=== PATIENT | male | born 1980 | race Caucasian/White ===

== ENCOUNTER 2020-01-26 08:17 | Outpatient (CLI) | payer OTHER, SELFPAY ==
--- NOTE | 2020-02-07 16:30 | SLEEP_ITS ---
Home Sleep Test. DATE OF STUDY: 01/26/2020 REASON FOR THE STUDY: Waking feeling unrefreshed, tired all day. HISTORY: This patient is a 39-year-old male, 5 feet 8 inches tall, weighing 167 pounds with a body mass index of 25.4. He has a history of waking up feeling unrefreshed and tired throughout the day. He experiences panic attacks in his sleep. He wakes up feeling disoriented with a rapid heart rate. He is unable to catch his breath. He feels faint during these episodes and has extreme exhaustion. He has had more than one at night and on one occasion lost consciousness. It does not happen often, but it is traumatic when it does happen. This has been going on irregularly for over 2 years. It is moderately severe. He wakes up during sleep, has excessive daytime sleepiness and difficulty waking. He rarely snores and it is never loud enough that others complain about it. He occasionally has trouble sleeping with a cold. He occasionally wakes up gasping for breath at night. He does not have breathing problems at night witnessed by others. He occasionally sweats excessively at night and notices his heart pounding or beating irregularly at night. He rarely falls asleep during the day. He does not fall asleep involuntarily or while driving. He does not have loss of muscle tone with strong emotion. He occasionally has daytime difficulties due to excessive sleepiness. He rarely feels paralyzed on waking or falling asleep. He does not have vivid dreamlike scenes upon awakening or falling asleep. He is frequently afraid to go to sleep. He constantly has nightmares. He frequently remembers his dreams and frequently has racing thoughts. He frequently feels sad or depressed. He constantly has anxiety. He frequently has muscular tension, occasionally notices parts of his body jerking and occasionally kicks at night. He rarely has crawling and aching feelings in his legs. He rarely has leg pain at night. He does not have morning jaw pain and rarely grinds his teeth at night. He occasionally is bothered by pain during the day. He has never awakened by pain at night. He frequently wakes up feeling stiff in the morning with sore achy muscles and pain in the spine and neck. He has dizziness, stomach problems, fatigue, panic, suicidal ideas, sexual problems, memory problems, insomnia and concentration difficulties. In addition, he takes antacids regularly, feels depressed, tensed, has nightmares, bowel disturbances, and palpitations. Normal bedtime is 12 midnight to 3 a.m., taking 15-20 minutes to fall asleep, typically waking 1 to 2 times at night for 5 minutes during which time he will go and urinate. He wakes up in the morning at 11 a.m. He has disturbance with his libido and is not sure if it is due to sexual problems or sleep problems. Weekend schedule is different, going to bed between 1 and 5 a.m. and waking by 12 noon. He does not take naps in the early evening or afternoon. A short nap is not refreshing. He is usually drowsy after waking for 3 hours or longer. He feels better in the evening than other times of day. MEDICAL COMORBIDITIES: Hyperlipidemia, hypertension, depression, and gastroesophageal reflux disease. MEDICATIONS: 1. Atorvastatin 80 mg a day. 2. Fenofibrate 145 mg daily. 3. Metoprolol 25 mg daily. 4. Sertraline 100 mg daily for depression and anxiety. HABITS: Tobacco, quit 14 months ago. Caffeine, 1 beverage a day. No alcohol or recreational drugs. DESCRIPTION OF THE STUDY: On the [place] Sleepiness Scale, his score is 3. This was conducted as an unattended type 3 portable home sleep test using 4-channel monitoring including respiratory effort channel, snoring channel, oxygen saturation channel, and heart rate channel. This study was score
== END 2020-01-26 08:18 | disposition home or self-care (01) ==
LOC: ANHCSM 08:21
PROVIDERS: PCP Emergency Medicine; Visit Provider Family Medicine
DX: G47.30 Sleep apnea, unspecified (principal)
CPT/HCPCS: 95806

== ENCOUNTER 2022-01-04 16:45 | Emergency (ER) | payer OTHER, SELFPAY ==
[2022-01-04] VITALS (9 sets, daily range): BP systolic 140–192; BP diastolic 99–106; PULSE 56–66; RESP 14–20; TEMP 36.4; O2SAT 99–100
--- NOTE | ~2022-01-04 | XR_ITS ---
EXAMINATION: XR chest 2V DATE: 01/04/2022 17:13 INDICATION: Shortness of breath. Chest tightness. TECHNIQUE: Frontal and lateral views of the chest were obtained. COMPARISON: Chest 2 views 03/18/2018 FINDINGS: There is mild scarring in right midlung zone. No pleural effusion or pneumothorax. The hear t size is normal. IMPRESSION: 1. Stable mild scarring in right midlung zone. Reviewed, dictated and finalized at location E. IC INSPECTOR
--- NOTE | 2022-01-04 16:53 | ECG_ITS ---
Measurements Intervals [place] Rate: 64 P: 47 [place]: 162 QRS: 10 QRSD: 101 T: 35 QT: 405 QTc: 420 Interpretive Statements SINUS RHYTHM DELAYED PRECORDIAL R/S TRANSITION CONSIDER INFERIOR INFARCT, AGE INDETERMINATE ABNORMAL ECG Electronically Signed On 01-04-2022 20:09:11 ENROLLMENT COORDINATOR by Mason Venegas D.O.
--- NOTE | 2022-01-04 17:12 | ED.GENADULT ---
HPI - General Adult General Chief complaint: Arrhythmia/Palpitations Stated complaint: irregular heart beat Time Seen by Provider: 01/04/22 16:57 Source: RN notes reviewed History of Present Illness HPI narrative: Patient presents emergency department from home for heart palpitations. Patient states that over the past 1 month he has been having feelings like his heart is skipping or jumping states that these are happening approximately 40 to of 100 times a day states that these episodes are brief and resolve on their own. States they last for approximately 1 to 2 seconds. He states a feeling of mild shortness of breath at times when they occur he denies any fevers or chills he denies any chest pain denies any previous cardiac history Related Data Home Medications Medication Instructions Recorded Confirmed metoprolol tartrate 01/04/22 01/04/22 Allergies Allergy/AdvReac Type Severity Reaction Status Date / Time No Known Allergies Allergy Unknown Other Verified 01/04/22 16:53 Review of Systems Review of Systems: Gen.: Denies fevers or chills ENT: Denies congestion Respiratory: Denies shortness of breath or cough CV: See HPI GI: Denies abdominal pain nausea, emesis or diarrhea Musculoskeletal: Denies back pain or muscle pain Neuro: Denies numbness, tingling, weakness or focal weakness Skin: Denies rash Except as documented, all other systems reviewed and negative PMFSH Past Medical History Medical History (Updated 01/04/22 @ 19:00 by Bob Mishra DO) Patient denies significant medical history Social History Social History (Updated 01/04/22 @ 17:43 by Bob Mishra DO) Smoking status: Never smoker Exam Narrative: APPEARANCE: No acute distress, nontoxic, resting in bed EYES: EOMI HEENT: Normocephalic, atraumatic, OMM RESPIRATORY: No respiratory distress Clear to auscultation bilaterally with no rhonchi wheezing or rales. CARDIOVASCULAR: Regular rate and rhythm without murmurs rubs or gallops. ABDOMINAL: Soft, nontender, nondistended, no rebound or guarding MUSCULOSKELETAl: Moves all extremities. No clubbing, cyanosis or edema. NEURO: Awake and alert. Following commands, speech normal, no focal deficits SKIN:: Warm, dry. No rashes lesions or abrasions PSYCHIATRIC: Normal affect/mood, Course Course Emergency Course: Patient remained on monitoring and evaluation advisor throughout stay in ED with no arrhythmias noted Discussed with patient results of workup and diagnosis. Discussed need for follow-up with primary care, proper use of medication, and reasons to return to the emergency department. Patient understands and agrees to current treatment plan discussed with patient mildly elevated TSH and for follow-up with PCP Vital Signs Vital signs: Vital Signs Temperature 97.6 F 01/04/22 16:49 Pulse Rate 65 01/04/22 16:49 Respiratory Rate 16 01/04/22 16:49 Blood Pressure 192/106 H 01/04/22 16:49 Pulse Oximetry 100 01/04/22 16:49 Temperature 97.6 F 01/04/22 16:49 Pulse Rate 64 01/04/22 17:00 Respiratory Rate 14 01/04/22 17:00 Blood Pressure 192/106 H 01/04/22 16:52 Pulse Oximetry 100 01/04/22 17:00 Medical Decision Making Vital Signs Vital Signs: Vital Signs Temperature 97.6 F 01/04/22 16:49 Pulse Rate 65 01/04/22 16:49 Respiratory Rate 16 01/04/22 16:49 Blood Pressure 192/106 H 01/04/22 16:49 Pulse Oximetry 100 01/04/22 16:49 Temperature 97.6 F 01/04/22 16:49 Pulse Rate 64 01/04/22 17:00 Respiratory Rate 14 01/04/22 17:00 Blood Pressure 192/106 H 01/04/22 16:52 Pulse Oximetry 100 01/04/22 17:00 Lab Data Result diagrams: 01/04/22 17:08 01/04/22 17:08 Labs: Lab Results 01/04/22 01/04/22 01/04/22 Range/Units 17:08 17:08 17:08 WBC 7.4 (4.5-10.0) K/mm3 RBC 4.80 (4.6-6.20) M/mm3 Hgb 14.6 (14.0-18.0) g/dL Hct 41.5 L (42.0-52.0) % MCV 86.5 (80-100) fl MCH 30.4 (26-34) pg
[2022-01-04 17:15] LABS: Basophils Absolute Auto 0.1 K/mm3 (0.0-0.1); Basophils Percent Auto 0.7 % (0.2-1.2); Eosinophils Absolute Auto 0.2 K/mm3 (0-0.3); Eosinophils Percent Auto 3.1 % (0-4.4); Hematocrit 41.5 % (42.0-52.0); Hemoglobin 14.6 g/dL (14.0-18.0); Immature Granulocyte Absolute 0.03 K/mm3 (0.00-0.031); Immature Granulocyte Percent A 0.4 % (0-0.5); Lymphocytes Absolute Auto 2.65 K/mm3 (0.9-3.2); Lymphocytes Percent Auto 35.6 % (18.3-44.2); Mean Corpuscular HGB Conc 35.2 g/dl (32-36); Mean Corpuscular Hemoglobin 30.4 pg (26-34); Mean Corpuscular Volume 86.5 fl (80-100); Mean Platelet Volume 9.7 fl (7.4-10.4); Monocytes Absolute Auto 0.5 K/mm3 (0.1-0.6); Neutrophils Percent Auto 53.2 % (45.5-73.1); Platelet Count Result 227 k/mm3 (150-375); Red Cell Distribution Width 12.8 % (11.5-14.5); White Blood Count 7.4 K/mm3 (4.5-10.0)
[2022-01-04 17:24] LABS: INR 1.1; Prothrombin Time 13.3 Seconds (11.1-14.7)
[2022-01-04 17:25] LABS: Partial Thromboplastin Time 28.6 SECONDS (22.3-36.8)
[2022-01-04 17:35] LABS: Alanine Aminotransferase 89 U/L (4-50); Alkaline Phosphatase 96 U/L (38-126); Anion Gap 9 mmol/L (8-16); Aspartate Amino Transferase 44 U/L (17-59); Bilirubin,Total 0.5 mg/dL (0.2-1.3); Blood Urea Nitrogen 13 mg/dL (9-20); Calcium 9.8 mg/dL (8.4-10.2); Carbon Dioxide 25 mmol/L (22-30); Chloride 102 mmol/L (98-107); Estimated Glomerular Filt Rate > 60; Glucose 127 mg/dL (65-110); Lipase 342 U/L (23-300); Potassium 3.5 mmol/L (3.4-5.0); Sodium 136 mmol/L (137-145)
[2022-01-04 17:46] LABS: Troponin I < 0.012 ng/mL (0.000-0.034)
[2022-01-04 17:47] LABS: Magnesium 1.8 mg/dL (1.6-2.3)
== END 2022-01-04 19:00 | disposition home or self-care (01) ==
PROVIDERS: Emergency Provider Emergency Medicine
DX: R00.2 Palpitations (principal); R94.31 Abnormal electrocardiogram [ECG] [EKG]
CPT/HCPCS: 36415; 71046; 80053; 83690; 83735; 84443; 84484; 85025; 85610; 85730; 93005; 99284

== ENCOUNTER 2025-03-09 22:27 | Emergency (ER) | payer OTHER, SELFPAY ==
--- NOTE | ~2025-03-09 | XR_ITS ---
XR chest 2V Ordering provider: Pk Snyder MD History: 44 years Male with . dizzy, htn; hx of htn . Comparison: January 04, 2022 FINDINGS: MEDIASTINUM: The cardiac silhouette is not enlarged. LUNGS: No infiltrates, effusions or pneumothorax. OTHER: No free air under the diaphragm. IMPRESSION: No acute cardiopulmonary pathology. Reviewed, dictated and finalized at location A.
[2025-03-09 22:29] VITALS: BP 179/98; PULSE 61; RESP 17; TEMP 36.2; O2SAT 100
--- OUTSIDE RECORDS SUMMARY | 2025-03-09 22:29 | XMS_ITS | Continuity of Care Document ---
Author Organization [facility] Address [address] [place] [address] [place] [address] Phone Care Team Providers Care Food Broker Name Role Phone Jorge Akbar MD Unavailable Unavailable Allergies, Adverse Reactions, Alerts Substance Reaction Status Criticality No Known Allergies Active No Inform ation Medications Medication Instructions Dosage Effective Dates (start - stop) Status Comments lisinopril 10 mg tablet take 1 tablet by oral route every day 10 MG - Active metoprolol tartrate 25 mg tablet take 1 tablet by oral route 2 times every day 25 MG - Active Lipitor 80 mg tablet take 1 tablet by or al route every day 80 MG - Active omeprazole 20 mg capsule,delayed release take 1 capsule by oral route every day before a meal 20 MG - Active Procedures Procedure Date OFFICE/OUTPATIENT VISIT, EST OFFICE/OUTPATIENT VISIT, EST OFFICE/OUTPATIENT VISIT, EST OFFICE/OUTPATIENT VISIT, EST OFFICE/OUTPATIENT VISIT, EST OFFICE/OUTPATIENT VISIT, EST PREV VISIT, NEW, AGE 18-39 Advance Directives Directive Yes / No Effective Date File Name No Information Encounters Encounter Description Practice Location Reason(s) For Visit Diagnoses Date Provider Providers Copied on Encounter [facility], [address] [place], [id number], [place] tel:[phone] [facility] No Information 8 Raffy Patel. [address] [place], [address] , [place]. tel:[phone] Referring Provider: Ximena Shrestha [address], [place], [place], [id number]. tel:[phone] OFFICE/OUTPA TIENT VISIT, [facility], [place], [address], [place], [place], [id number], [place] tel:[phone] [facility] HLP (chief complaint) GERD1 (chief complaint) anxiety1 (chief complaint) chest pain1 (chief complaint) Chest painGERD w/o esophagitisGenerali zed Anxiety DisorderHyperlipide andra 8 Raffy Patel. [address], [place], [place], [address] , [place]. tel:[phone] Referring Provider: [address], [place], [place], [id number]. tel:[phone] OFFICE/OUTPA TIENT VISIT, [facility], [place], [address], [place], [place], [address], [place] tel:[phone] [facility] chest pain1 (chief complaint) HLP (chief complaint) GERD1 (chief complaint) anxiety1 (chief complaint) toothache1 (chief complaint) Chest painGERD w/o esophagitisGenerali zed Anxiety DisorderHypercalcem iaAtypical facial painHyperlipidemia 3 0 8 Raffy Hawley [address], [place], [place], [address] , [place]. tel:[phone] Referring Provider: Ximena Shrestha [address], [place], [place], [address]. tel:[phone] OFFICE/OUTPA TIENT VISIT, [facility], [place], [address] [place], [address], [place] tel:[phone] [facility] HLP (chief complaint) HTN (chief complaint) recal bleeding1 (chief complaint) PalpitationsHyperli pidemiaOccult blood in fecesGERD w/o esophagitis Jan-0 8 Raffy Patel. [address], [place], [place], [address] , [place]. [phone] Referring Provider: Ximena Shrestha [facility], [place], [place], [id number]. tel:[phone] OFFICE/OUTPA TIENT VISIT, [facility], [place], [address], [place], [place], [address], [place] [phone] [facility] anxiety` (chief complaint) HLP (chief complaint) calcium (chief complaint) palpitatio n1 (chief complaint) HyperlipidemiaGener alized Anxiety DisorderSleep apneaPalpitations 7 Raffy Hawley [address], [place], [place], [address] , [place]. tel:[phone] Referring Provider: Ximena Shrestha [facility], [place], [place], [address]. tel:[phone] OFFICE/OUTPA TIENT VISIT, [facility], [place], [address], [place], [place], [address], [place] tel:[phone] [facility] HLP (chief complaint) panic attack1 (chief complaint) calcium (chief complaint) HyperlipidemiaHyper calcemiaGeneralized Anxiety DisorderVitamin D deficiency, unspecified 7 Raffy Hawley [address], [place], [place], [address] , [place]. tel:[phone] Referring Provider: Ximena Shrestha [facility] [address], [place], [place], [address]. tel:[phone] OFFICE/OUTPA TIENT VISIT, [facility], [place], [address] [place], [address], [place] [phone] [facility] anxiety1 (chief complaint) palpitatio n1 (chief complaint) cold symptoms1 (chief complaint) Acute upper respiratory infection, unspecifiedPalpitat ionsGeneralized Anxiety DisorderEssential (primary) hypertension 7 Raffy Hawley [address], [place], [place], [address] , [place]. tel:[phone] Referring Provider: Jorge Akbar, [address], [place], [place], [address]. tel:[phone] PREV VISIT, NEW, AGE 18-39 [facility], [address], [place], [place], [address], tel:[phone] [facility] PHysical (chief complaint) Encntr for general adult medical exam w/o abnormal findings Raffy Patel. [address], [place], [place], [address] , [place]. tel:[phone] Referring Provider: Jorge Akbar, [address], [place], [place], [address]. tel:[phone] Family History Family Member Type Diagnosis Age At Onset Father Problem (finding) Unknown Mother Problem (finding) Hypertension Brother Problem (finding) Alive and well Payers Payer name Insurance type Covered alliance party ID Authoriza tion(s) No Information Social History Type Description Quantity Date Captured Comments Alcohol Use Details Unknown Caffeine Use Details Unknown Tobacco Use Status Smoking Status No Information Sex Male Chief Complaint And Reason For Visit No Information Plan Of Treatment Date Type Action Status Referral Ordered: PUJA BARFIELD -[facility]opathic [facility] Osteopathic Physicians : Internal Medicine (related to Chest pain) ordered Referral Referred To: PUJA BARFIELD [id number] [place], [place], [phone] Ordered: Referrals: Allopathic & Osteopathic Physicians : Internal Medicine. PUJA BARFIELD. Evaluate and treat ordered Referral Ordered: Mason Venegas (related to Palpitations) ordered Referral Referred To: Mason Venegas [address] [place], [place] [id number] Ordered: Referrals: Mason Venegas. Evaluate and treat ordered Referral Ordered: PUJA BARFIELD (related to Sleep apnea) ordered Referral Referred To: PUJA BARFIELD [id number] [place], [place], [phone] Ordered: Referrals: PUJA BARFIELD. Evaluate and treat ordered Referral Ordered: DOPPLER ECHO EXAM, HEART ordered History Of Present Illness Encounter Date Complaint History Of Prese nt Illness HLP Pt has HLP Pt ta kes lipitor 80 mg daily. Pt denies any myalgia GERD1 Pt has GERD. Pt takes omeprazole and is helping his GERd symptoms. Pt developed right upper quadrant pain for two days. Pt describes sharp pain anxiety1 Pt has chronic a nxiety and depression. Pt states that lexapro is causing too much side effect and he wants to go back to zoloft. Pt denies any suicidal or homicidal thought. Pt denies any crying spells chest pain1 Pt has atypical chest pain, nonexertional. Pt has appointment with cardiology in two weeks. pt denies any acute chest pain. pt has occasional palpitation. HLP P thas HLP Pt is on lipitor 40 mg daily. His lipid profile is still high toothache1 Pt has toothache . Pt has tooth decay. Pt has appointment with dentist soon. Pt denies any facial swelling anxiety1 Pt has chronic a nxiety and depression. Pt takes zoloft but still feels depressed. and anxious. Pt denies any suicidal or homicidal thought. Pt denies any crying spells GERD1 Pt has daily KERRIE D despite taking zantac.. Pt denies any acute abdomen pain or any nausea chest pain1 Pt went to ER re cently for chest pain. pt had negative troponin and ekg and was sent home. Pt c/o diffuse chest pain with some right arm numbness and tingling . Pt was told he has anxiety HLP Pt has HLP. Pt t akes lipitor. Pt denies any myalgia. pt has not done lab yet HTN Pt has hTN and h e takes metoprolol and lisinopirl. Pt still has occassioal palpitation. Pt still has not done the EKG and echo yet. Pt denie any chest pain recal bleeding1 Pt has bright re d blood per rectum for one week. Pt has chronic diarrhea since 6 months ago. Pt denies any abd pain, Pt has sever GERD symptoms for several months Pt has to have diarrhea right after food. Pt denies any fever, chill. Pt started amoxil 5 days ago due to tooth infection anxiety` Pt has chronic a nxiety and depression. Pt has panic attacks at night. Pt did not start seroquel due to scared of side effects. Pt states that sometimes he wakes up at night gasping for air. Pt is not sure whether he has anxiety vs other issue.s HLP Pt has HLP Pt [facility] lipitor. Pt denies any myalgia. Pt has been trying low fat and low carb diet calcium Pt has mild high calcium. palpitation1 Pt has intermitt ent palpitation. Pt still has not done echo and Ekg yet Pt denies any chest pain. Pt states that he sometimes wakes up unable to breath at night. Pt does feel morning fatigue. HLP Pt has rather se tyron HLP his TC and TG are high Pt has history of HLp Pt states that he has strong family history of HLP Pt eats 2-3 fast food per week and he also likes potato etc. calcium Pt has mildly prem rderline hypercalcemia. panic attack1 Pt has anxiety a nd depression with occassioal panic attacks. Pt states that all panic attacks occurs at night while he tries to fall asleep. He states that he wakes up from panic attacks multiple times. . pt also has insomnia. Pt feels zoloft does help but his anxiety and panic attacks are still not well controlled at night anxiety1 Pt has chronic a nxiety and depression. Pt has poor motivation and severe anxiety. Pt states that zoloft helped his depression and anxiety. Pt still has lack of motivation and also he still does not want to go out of the house all the time. Pt failed buspar in the past Pt overall feels that zoloft is helping. palpitation1 Pt has intermitt ent palpitation. Pt denies any chest pain .Pt supposest o see cardiology but his insurance refuses to provide medicar severice for him. He missed his appointment. He does not have drive licenese due to history of DUI and he canot get anything done. Pt feels sob intermittently when he feels anxious. Pt denies any acute sob cold symptoms1 Pt c/o sinus con gestion, chest congestion productive coughing with green phlegm, sore throat for one weeks. pt denies any ear pain. Pt denies any fever, chill. PHysical Pt needs annual physical. pt has chronic HTn. Pt takes metoprolol for long time but his physician recently started him on lisinopirl in addition to metoprolol. Pt states that his BP is still high. Pt denies any chest pain or sob. Pt also has HLP but he was not currenlty being treated. Pt denies any headache. Pt denies any other complaints. His bp is above 140 at home. Pt recently had some palpitation and sob during sleep and also during the day. Pt states that he has several episodes of palpitatoin with sob throughout the day also. Pt states that symptoms occur during last 2 months. Pt is under a lot of stress recently. Pt denies any acute symptoms. Pt denies any exertional symptoms. pt thinks that he is having a lot fo panic attacks recnelty. Pt also feels depressed. Pt denies any cyring spells Instructions Date Instruction Additional Infor mation Increase activity. Related to Hy perlipidemia Follow a low sodium diet. Relate d to Hyperlipidemia Elevate head of bed prior to sle ep. Related to GERD w/o esophagitis Eat smaller meals, n o eating three hours prior to bedtime. Related to GERD w/o esophagitis Avoid provocative fo ods: citrus, alcohol, coffee, chocolate, mints. Related to GERD w/o esophagitis Quit smoking Related to Palpi tations Stop smoking. Related to Hyper lipidemia Prescribed Diet Educ ation/Lifestyle Education Regarding Diet Related to Dietary Surveillance and Counseling Prescribed Activity and Exercise Education Related to Dietary Surveillance and Counseling Follow a low sodium diet. Relate d to Hyperlipidemia Quit smoking Related to Acute upper respiratory infection, unspecified Increase activity. Related to En cntr for general adult medical exam w/o abnormal findings Assessments Type Assessment Date No Information
--- OUTSIDE RECORDS SUMMARY | 2025-03-09 22:29 | XMS_ITS | Clinical Summary ---
Author Organization [address] [address] Care Team Providers Care Pourer Off Name Role Phone Angelica Ni Primary Care Provider [phone] Allergies No known active allergies Medications No known medications Active Problems No known active problems Encounters Date Type Department Care Team Description 01/27/2025 Results Follow-Up [facility] Convenient Care at [address] [address] Kia Arita NP 01/25/2025 3:30 PM STANDARDS ANALYST - 01/25/2025 11:59 PM STANDARDS ANALYST [place] [address] Urinary frequency Discharge Disposition: Discharge to home or self care 01/25/2025 3:30 PM STANDARDS ANALYST Office Visit [facility] Care at [address] [address] Nayana Rascon NP Urinary frequency (Primary Dx); Lower abdominal pain from Last 3 Months Surgical History Surgery Date Site/Laterality Comments HERNIA REPAIR Social History Tobacco Use Types Packs/Day Years Used Date Smoking Tobacco: Never Assessed Sex and Gender Information Value Date Recorded Sex Assigned at Not on file Legal Sex Male 2:32 PM STANDARDS ANALYST Gender Identity Not on file Sexual Orientation Not on file Obstetrics History Last Filed Vital Signs Vital Sign Reading Time Taken Comments Blood Pressure 148/88 01/25/2025 3:09 PM STANDARDS ANALYST Pulse 75 01/25/2025 3:09 PM STANDARDS ANALYST Temperature 36.8 C (98.3 F) 01/25/2025 3:09 PM STANDARDS ANALYST Respiratory Rate 16 01/25/2025 3:09 PM STANDARDS ANALYST Oxygen Saturation 100% 01/25/2025 3:09 PM STANDARDS ANALYST Inhaled Oxygen Concentration - - Weight 76.2 kg (168 lb) 01/25/2025 3:09 PM STANDARDS ANALYST Height - - Body Mass Index - - Plan of Treatment Health Maintenance Due Date Last Done Comments Colon Cancer Screening-Colonoscopy 1978 Depression Screening 1978 Hepatitis C Screening 1978 DTaP/Tdap/Td Vaccine (1 - Tdap) 1989 Hepatitis B Screening 1996 Regular Well Visit/Exam 18-64 1996 Influenza Vaccine (Season Ended) 2025 HPV Vaccines Aged Out No longer eligi ble based on patient's age to complete this topic Pneumococcal vaccine <65 Aged Out No longer eligible based on patient's age to complete this topic Procedures Procedure Name Priority Date/Time Associated Diagnosis Comments URINE CULTURE Routine 01/25/2025 3:30 PM STANDARDS ANALYST Urinary frequency POCT URINALYSIS DIPSTICK Routine 01/25/2025 3:19 PM STANDARDS ANALYST Urinary frequency from Last 3 Months Results * Urine culture Urine, clean voided (01/25/2025 3:30 PM STANDARDS ANALYST) Report Final Report: No growth Comment:Testing performed by : [facility], [address] [place]., [address] Urine, clean voided 01/25/2025 3:30 PM STANDARDS ANALYST 01/25/2025 10:23 PM STANDARDS ANALYST Narrative HIPOLITO FIGUEROA - 01/27/2025 7:55 AM STANDARDS ANALYST Testing performed by [facility] Microbiology Laboratory ([phone]) us Nayana Rascon NP LAB MICROBIOLOGY - GENERAL ORD ERABLES Final Result HIPOLITO FIGUEROA [address] [address] Department [place] [address] * POCT urinalysis dipstick (01/25/2025 3:19 PM STANDARDS ANALYST) Color, Urine, POC Light Yellow Clarity, ur, POC Clear Clear Glucose, ur, POC Negative Negative MG/DL Bilirubin, ur, POC Negative Negative, Small, Moderate, Large Ketones, ur, POC Negative Negative Specific [place], POC 1.015 1.003 - 1.030 Blood, ur, POC Negative Negative pH, ur, POC 6.0 5.0 - 8.0 Protein, ur, POC Negative Negative Urobilinogen, urine, POC 0.2 0.2 - 1.0 mg/dL Nitrite, ur, POC Negative Negative Leukocytes, ur, POC Negative Negative Lot Number [id number] Urine 01/25/2025 3:19 PM STANDARDS ANALYST Nayana Rascon NP POINT OF CARE TEST ORDERABLES Final Result from Last 3 Months Insurance [facility] Care Teams Pourer Off Relationship Specialty Start Date End Date Angelica Ni PA [address] [place] [id number] PCP - General Physician Stars Analytical Lead 01/25/25
--- OUTSIDE RECORDS SUMMARY | 2025-03-09 22:29 | XMS_ITS | Encounter Summary ---
Author Organization [facility] Healthcare Address [address] [place] [address] Care Team Providers Care Bilingual Case Manager Name Role Phone Angelica Ni Primary Care Provider [phone] Encounter Details Date Type Department Care Team (Late st Contact Info) Description 01/27/2025 Results Follow-Up [facility] Medical Group Convenient Care at [address] [phone] Kia Arita NP [address] [place] [id number] Social History Tobacco Use Types Packs/Day Years Used Date Smoking Tobacco: Never Assessed Sex and Gender Information Value Date Recorded Sex Assigned at Not on file 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
--- OUTSIDE RECORDS SUMMARY | 2025-03-09 22:29 | XMS_ITS | CONTINUITY OF CARE DOCUMENT ---
Author Name jozef haskins Address Unknown Organization [facility] Office Address [address] [place] [address] Phone [phone] Care Team Providers Care Scroll Shear Operator Name Role Phone Josue Gray MD Unavailable [phone] MICHAEL WAKEFIELD MD Unavailable [phone] MICHEAL WAKEFIELD MD Unavailable [phone] INSURANCE PROVIDERS Payer name Policy type / Coverage type [employer] red green party ID [employer] Medicaid [id number]
--- OUTSIDE RECORDS SUMMARY | 2025-03-09 22:29 | XMS_ITS | Referral Summary ---
Author Organization [address] [address] Care Team Providers Care Chief Ultrasound Technologist Name Role Phone Angelica Ni Primary Care Provider [phone] Encounters Date Type Department Care Team Description 01/27/2025 Results Follow-Up [facility] Care at [address] [address] Kia Arita NP 01/25/2025 3:30 PM SALES ADMINISTRATION SPECIALIST - 01/25/2025 11:59 PM SALES ADMINISTRATION SPECIALIST [place] [address] Urinary frequency Discharge Disposition: Discharge to home or self care 01/25/2025 3:30 PM SALES ADMINISTRATION SPECIALIST Office Visit [facility] Medical [facility] Care at [address] [address] Nayana Rascon NP Urinary frequency (Primary Dx); Lower abdominal pain from Last 3 Months Allergies No known active allergies Medications No known medications Active Problems No known active problems Social History Tobacco Use Types Packs/Day Years Used Date Smoking Tobacco: Never Assessed Sex and Gender Information Value Date Recorded Sex Assigned at Not on file Legal Sex Male 2:32 PM SALES ADMINISTRATION SPECIALIST Gender Identity Not on file Sexual Orientation Not on file Last Filed Vital Signs Vital Sign Reading Time Taken Comments Blood Pressure 148/88 01/25/2025 3:09 PM SALES ADMINISTRATION SPECIALIST Pulse 75 01/25/2025 3:09 PM SALES ADMINISTRATION SPECIALIST Temperature 36.8 C (98.3 F) 01/25/2025 3:09 PM SALES ADMINISTRATION SPECIALIST Respiratory Rate 16 01/25/2025 3:09 PM SALES ADMINISTRATION SPECIALIST Oxygen Saturation 100% 01/25/2025 3:09 PM SALES ADMINISTRATION SPECIALIST Inhaled Oxygen Concentration - - Weight 76.2 kg (168 lb) 01/25/2025 3:09 PM SALES ADMINISTRATION SPECIALIST Height - - Body Mass Index - - Plan of Treatment Not on file Procedures Procedure Name Priority Date/Time Associated Diagnosis Comments URINE CULTURE Routine 01/25/2025 3:30 PM SALES ADMINISTRATION SPECIALIST Urinary frequency POCT URINALYSIS DIPSTICK Routine 01/25/2025 3:19 PM SALES ADMINISTRATION SPECIALIST Urinary frequency from Last 3 Months Results * Urine culture Urine, clean voided (01/25/2025 3:30 PM SALES ADMINISTRATION SPECIALIST) Report Final Report: No growth Comment:Testing performed by : [facility], [address] [place]., [address] Urine, clean voided 01/25/2025 3:30 PM SALES ADMINISTRATION SPECIALIST 01/25/2025 10:23 PM SALES ADMINISTRATION SPECIALIST Narrative HIPOLITO FIGUEROA - 01/27/2025 7:55 AM SALES ADMINISTRATION SPECIALIST Testing performed by [facility] Microbiology Laboratory ([phone]) us Nayana Rascon NP LAB MICROBIOLOGY - GENERAL ORD ERABLES Final Result [facility] [address] [address] Department [place] [address] * POCT urinalysis dipstick (01/25/2025 3:19 PM SALES ADMINISTRATION SPECIALIST) Color, Urine, POC Light Yellow Clarity, ur, POC Clear Clear Glucose, ur, POC Negative Negative MG/DL Bilirubin, ur, POC Negative Negative, Small, Moderate, Large Ketones, ur, POC Negative Negative Specific [place], POC 1.015 1.003 - 1.030 Blood, ur, POC Negative Negative pH, ur, POC 6.0 5.0 - 8.0 Protein, ur, POC Negative Negative Urobilinogen, urine, POC 0.2 0.2 - 1.0 mg/dL Nitrite, ur, POC Negative Negative Leukocytes, ur, POC Negative Negative Lot Number [id number] Urine 01/25/2025 3:19 PM SALES ADMINISTRATION SPECIALIST Nayana Rascon NP POINT OF CARE TEST ORDERABLES Final Result from Last 3 Months Insurance [employer] Care Teams Chief Ultrasound Technologist Relationship Specialty Start Date End Date Angelica Ni PA [address] [place] [id number] PCP - General Physician Cofounder 01/25/25
--- NOTE | 2025-03-09 22:31 | ECG_ITS ---
Test Date: 2025-03-09 22:36:06 Measurements Intervals [place] Rate: 57 P: 18 ME: 165 QRS: 19 QRSD: 92 T: 50 QT: 373 QTc: 365 Interpretive Statements SINUS BRADYCARDIA DELAYED PRECORDIAL R/S TRANSITION BORDERLINE ECG No previous ECG available for comparison Electronically Signed On 03-10-2025 06:13:09 CDT by Mason Venegas D.O.
[2025-03-09 22:53] LABS: Add Urine Microscopic? NO; Appearance Urine Clear (Clear); Bilirubin Urine Negative (Negative); Blood Urine Negative (Negative); Color Urine Yellow (Yellow); Glucose Urine UA Negative (Negative); Ketones Urine Negative (Negative); Leukocyte Esterase Ur Negative LEU/UL (Negative); Nitrate Urine Negative (Negative); Protein Urine Negative (Negative); Specific Grav Ur 1.007 (1.001-1.035); Urobilinogen Urine 0.2 mg/dL (<2.0); pH Urine 5.5 (5.0-9.0)
[2025-03-09 22:56] LABS: Basophils Absolute Auto 0.1 K/mm3 (0.0-0.1); Basophils Percent Auto 0.8 % (0.2-1.2); Eosinophils Absolute Auto 0.4 K/mm3 (0-0.3); Eosinophils Percent Auto 4.8 % (0-4.4); Hematocrit 43.2 % (42.0-52.0); Hemoglobin 14.5 g/dL (14.0-18.0); Immature Granulocyte Absolute 0.02 K/mm3 (0.00-0.031); Immature Granulocyte Percent A 0.3 % (0-0.5); Lymphocytes Percent Auto 28.5 % (18.3-44.2); Mean Corpuscular HGB Conc 33.6 g/dl (32-36); Mean Corpuscular Hemoglobin 29.7 pg (26-34); Mean Corpuscular Volume 88.5 fl (80-100); Mean Platelet Volume 9.3 fl (7.4-10.4); Monocytes Absolute Auto 0.4 K/mm3 (0.1-0.6); Monocytes Percent Auto 5.4 % (2.6-8.5); Neutrophils Absolute Auto 4.7 K/mm3 (1.3-6.7); Neutrophils Percent Auto 60.2 % (45.5-73.1); Platelet Count Result 271 k/mm3 (150-375); Red Blood Count 4.88 M/mm3 (4.6-6.20); Red Cell Distribution Width 12.4 % (11.5-14.5); White Blood Count 7.7 K/mm3 (4.5-10.0)
[2025-03-10 06:28] LABS: Alanine Aminotransferase 75 U/L (6-50); Albumin Level 4.9 g/dL (3.5-5.1); Alkaline Phosphatase 82 U/L (38-126); Anion Gap 14 mmol/L (4-12); Aspartate Amino Transferase 36 U/L (17-59); Bilirubin,Total 0.5 mg/dL (0.2-1.3); Blood Urea Nitrogen 13 mg/dL (9-20); Calcium 9.3 mg/dL (8.4-10.2); Carbon Dioxide 23 mmol/L (22-30); Chloride 102 mmol/L (98-107); Estimated CRCL calculation 73 ml/min; Estimated Glomerular Filt Rate > 60; Glucose 90 mg/dL (65-110); Potassium 4.1 mmol/L (3.4-5.0); Sodium 139 mmol/L (137-145)
--- OUTSIDE RECORDS SUMMARY | 2025-03-10 07:16 | XMS_ITS | Referral Summary ---
Author Organization [address] [address] Care Team Providers Care Customer Sales Consultant Name Role Phone Angelica Ni Primary Care Provider [phone] Encounters Date Type Department Care Team Description 01/27/2025 Results Follow-Up [facility] [address] Kia Arita NP 01/25/2025 3:30 PM BIOMEDICAL ANALYTICAL SCIENTIST - 01/25/2025 11:59 PM BIOMEDICAL ANALYTICAL SCIENTIST [place] [address] Urinary frequency Discharge Disposition: Discharge to home or self care 01/25/2025 3:30 PM BIOMEDICAL ANALYTICAL SCIENTIST Office Visit [facility] Medical [facility] Care at [address] [address] Nayana Rascon NP Urinary frequency (Primary Dx); Lower abdominal pain from Last 3 Months Allergies No known active allergies Medications No known medications Active Problems No known active problems Social History Tobacco Use Types Packs/Day Years Used Date Smoking Tobacco: Never Assessed Sex and Gender Information Value Date Recorded Sex Assigned at Not on file Legal Sex Male 2:32 PM BIOMEDICAL ANALYTICAL SCIENTIST Gender Identity Not on file Sexual Orientation Not on file Last Filed Vital Signs Vital Sign Reading Time Taken Comments Blood Pressure 148/88 01/25/2025 3:09 PM BIOMEDICAL ANALYTICAL SCIENTIST Pulse 75 01/25/2025 3:09 PM BIOMEDICAL ANALYTICAL SCIENTIST Temperature 36.8 C (98.3 F) 01/25/2025 3:09 PM BIOMEDICAL ANALYTICAL SCIENTIST Respiratory Rate 16 01/25/2025 3:09 PM BIOMEDICAL ANALYTICAL SCIENTIST Oxygen Saturation 100% 01/25/2025 3:09 PM BIOMEDICAL ANALYTICAL SCIENTIST Inhaled Oxygen Concentration - - Weight 76.2 kg (168 lb) 01/25/2025 3:09 PM BIOMEDICAL ANALYTICAL SCIENTIST Height - - Body Mass Index - - Plan of Treatment Not on file Procedures Procedure Name Priority Date/Time Associated Diagnosis Comments URINE CULTURE Routine 01/25/2025 3:30 PM BIOMEDICAL ANALYTICAL SCIENTIST Urinary frequency POCT URINALYSIS DIPSTICK Routine 01/25/2025 3:19 PM BIOMEDICAL ANALYTICAL SCIENTIST Urinary frequency from Last 3 Months Results * Urine culture Urine, clean voided (01/25/2025 3:30 PM BIOMEDICAL ANALYTICAL SCIENTIST) Report Final Report: No growth Comment:Testing performed by : [facility], [address] [place]., [address] Urine, clean voided 01/25/2025 3:30 PM BIOMEDICAL ANALYTICAL SCIENTIST 01/25/2025 10:23 PM BIOMEDICAL ANALYTICAL SCIENTIST Narrative HIPOLITO FIGUEROA - 01/27/2025 7:55 AM BIOMEDICAL ANALYTICAL SCIENTIST Testing performed by [facility] Microbiology Laboratory ([phone]) us Nayana Rascon NP LAB MICROBIOLOGY - GENERAL ORD ERABLES Final Result [facility] [address] [address] Department [place] [address] * POCT urinalysis dipstick (01/25/2025 3:19 PM BIOMEDICAL ANALYTICAL SCIENTIST) Color, Urine, POC Light Yellow Clarity, ur, POC Clear Clear Glucose, ur, POC Negative Negative MG/DL Bilirubin, ur, POC Negative Negative, Small, Moderate, Large Ketones, ur, POC Negative Negative Specific [place], POC 1.015 1.003 - 1.030 Blood, ur, POC Negative Negative pH, ur, POC 6.0 5.0 - 8.0 Protein, ur, POC Negative Negative Urobilinogen, urine, POC 0.2 0.2 - 1.0 mg/dL Nitrite, ur, POC Negative Negative Leukocytes, ur, POC Negative Negative Lot Number [id number] Urine 01/25/2025 3:19 PM BIOMEDICAL ANALYTICAL SCIENTIST Nayana Rascon NP POINT OF CARE TEST ORDERABLES Final Result from Last 3 Months Insurance [facility] Care Teams Customer Sales Consultant Relationship Specialty Start Date End Date Angelica Ni PA [address] [place] [id number] PCP - General Physician Broadcast Operations Manager 01/25/25
--- OUTSIDE RECORDS SUMMARY | 2025-03-10 07:16 | XMS_ITS | Encounter Summary ---
Author Organization [facility] Healthcare Address [address] [place] [address] Care Team Providers Care Wire Mesh Gate Assembler Name Role Phone Angelica Ni Primary Care Provider [phone] Encounter Details Date Type Department Care Team (Late st Contact Info) Description 01/27/2025 Results Follow-Up [facility] Convenient Care at [address] [phone] Kia Arita NP [address] [place] [id number] Social History Tobacco Use Types Packs/Day Years Used Date Smoking Tobacco: Never Assessed Sex and Gender Information Value Date Recorded Sex Assigned at Not on file 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
--- OUTSIDE RECORDS SUMMARY | 2025-03-10 07:16 | XMS_ITS | Continuity of Care Document ---
Author Organization [facility] Address [address] [place] [address] [place] [address] Phone Care Team Providers Care Junior Programmer Analyst Name Role Phone Jorge Akbar MD Unavailable Unavailable Allergies, Adverse Reactions, Alerts Substance Reaction Status Criticality No Known Allergies Active No Inform ation Medications Medication Instructions Dosage Effective Dates (start - stop) Status Comments metoprolol tartrate 25 mg tablet take 1 tablet by oral route 2 times every day 25 MG - Active lisinopril 10 mg tablet take 1 tablet by oral route every day 10 MG - Active omeprazole 20 mg capsule,delayed release take 1 capsule by oral route every day before a meal 20 MG - Active Lipitor 80 mg tablet take 1 tablet by or al route every day 80 MG - Active Procedures Procedure Date OFFICE/OUTPATIENT VISIT, EST OFFICE/OUTPATIENT VISIT, EST OFFICE/OUTPATIENT VISIT, EST OFFICE/OUTPATIENT VISIT, EST OFFICE/OUTPATIENT VISIT, EST OFFICE/OUTPATIENT VISIT, EST PREV VISIT, NEW, AGE 18-39 Advance Directives Directive Yes / No Effective Date File Name No Information Encounters Encounter Description Practice Location Reason(s) For Visit Diagnoses Date Provider Providers Copied on Encounter [facility], [email or web address] [place], [id number], [place] tel:[phone] [facility] No Information 8 Raffy Patel. [address], [address] , [place]. tel:[phone] Referring Provider: Ximena Shrestha [address], [place], [place], [address]. tel:[phone] OFFICE/OUTPA TIENT VISIT, [facility], [address], [place], [place], [address], [place] tel:[phone] [facility] HLP (chief complaint) GERD1 (chief complaint) anxiety1 (chief complaint) chest pain1 (chief complaint) Chest painGERD w/o esophagitisGenerali zed Anxiety DisorderHyperlipide andra 8 Raffy Patel. [address], [place], [place], [address] , [place]. tel:[phone] Referring Provider: X[address] Sh[address], [place], [place], [address]. tel:[phone] OFFICE/OUTPA TIENT VISIT, [facility], [address], [place], [place], [address], [place] tel:[phone] [facility] chest pain1 (chief complaint) HLP (chief complaint) GERD1 (chief complaint) anxiety1 (chief complaint) toothache1 (chief complaint) Chest painGERD w/o esophagitisGenerali zed Anxiety DisorderHypercalcem iaAtypical facial painHyperlipidemia 3 0 8 Raffy Hawley [address], [place], [place], [address] , [place]. tel:[phone] Referring Provider: Ximena Shrestha [address], [place], [place], [address]. tel:[phone] OFFICE/OUTPA TIENT VISIT, [facility], [address] [place], [address], [place] tel:[phone] [facility] HLP (chief complaint) HTN (chief complaint) recal bleeding1 (chief complaint) PalpitationsHyperli pidemiaOccult blood in fecesGERD w/o esophagitis Jan-0 8 Raffy Patel. [address], [place], [place], [address] , [place]. [phone] Referring Provider: Ximena Shrestha [facility], [place], [place], [address]. tel:[phone] OFFICE/OUTPA TIENT VISIT, [facility], [address], [place], [place], [address], [place] [phone] [facility] anxiety` (chief complaint) HLP (chief complaint) calcium (chief complaint) palpitatio n1 (chief complaint) HyperlipidemiaGener alized Anxiety DisorderSleep apneaPalpitations 7 Raffy Hawley [address], [place], [place], [address] , [place]. tel:[phone] Referring Provider: Ximena Shrestha [facility], [place], [place], [address]. tel:[phone] OFFICE/OUTPA TIENT VISIT, [facility], [address], [place], [place], [address], [place] tel:[phone] [facility] HLP (chief complaint) panic attack1 (chief complaint) calcium (chief complaint) HyperlipidemiaHyper calcemiaGeneralized Anxiety DisorderVitamin D deficiency, unspecified 7 Raffy Hawley [address], [place], [place], [address] , [place]. tel:[phone] Referring Provider: Ximena Shrestha [facility], [place], [place], [address]. tel:[phone] OFFICE/OUTPA TIENT VISIT, [facility], [address] [place], [address], [place] [phone] [facility] anxiety1 (chief complaint) palpitatio n1 (chief complaint) cold symptoms1 (chief complaint) Acute upper respiratory infection, unspecifiedPalpitat ionsGeneralized Anxiety DisorderEssential (primary) hypertension 7 Raffy Hawley [address], [place], [place], [address] , [place]. tel:[phone] Referring Provider: Jorge Akbar, [address], [place], [place], [address]. tel:[phone] PREV VISIT, NEW, AGE 18-39 [facility], [address], [place], [place], [address], tel:[phone] [facility] PHysical (chief complaint) Encntr for general adult medical exam w/o abnormal findings Raffy Patel. [address], [place], [place], [address] , [place]. tel:[phone] Referring Provider: Jorge Akbar, [address], [place], [place], [address]. tel:[phone] Family History Family Member Type Diagnosis Age At Onset Father Problem (finding) Unknown Mother Problem (finding) Hypertension Brother Problem (finding) Alive and well Payers Payer name Insurance type Covered libertarian ID Authoriza tion(s) No Information Social History [...] pain) ordered Referral Referred To: PUJA BARFIELD [id number] [place], [place], [phone] Ordered: Referrals: Allopathic & Osteopathic Physicians : Internal Medicine. PUJA BARFIELD. Evaluate and treat ordered Referral Ordered: Mason Venegas (related to Palpitations) ordered Referral Referred To: Mason Venegas [address] [place], [place] [id number] Ordered: Referrals: Mason Venegas. Evaluate and treat ordered Referral Ordered: PUJA BARFIELD (related to Sleep apnea) ordered Referral Referred To: PUJA BARFIELD [id number] [place], [place], [phone] Ordered: Referrals: PUJA BARFIELD. Evaluate and treat ordered Referral Ordered: DOPPLER ECHO EXAM, HEART ordered History Of Present Illness Encounter Date Complaint History Of Prese nt Illness chest pain1 Pt has atypical chest pain, nonexertional. Pt has appointment with cardiology in two weeks. pt denies any acute chest pain. pt has occasional palpitation. anxiety1 Pt has chronic a nxiety and depression. Pt states that lexapro is causing too much side effect and he wants to go back to zoloft. Pt denies any suicidal or homicidal thought. Pt denies any crying spells GERD1 Pt has GERD. Pt takes omeprazole and is helping his GERd symptoms. Pt developed right upper quadrant pain for two days. Pt describes sharp pain HLP Pt has HLP Pt ta kes lipitor 80 mg daily. Pt denies any myalgia HLP P thas HLP Pt is on [...] . Pt was told he has anxiety HTN Pt has hTN and h e takes metoprolol and lisinopirl. Pt still has occassioal palpitation. Pt still has not done the EKG and echo yet. Pt denie any chest pain HLP Pt has HLP. Pt t akes lipitor. Pt denies any myalgia. pt has not done lab yet recal bleeding1 Pt has bright re d blood per rectum for one week. Pt has chronic diarrhea since 6 months ago. Pt denies any abd pain, Pt has sever GERD symptoms for several months Pt has to have diarrhea right after food. Pt denies any fever, chill. Pt started amoxil 5 days ago due to tooth infection palpitation1 Pt has intermitt ent palpitation. Pt still has not done echo and Ekg yet Pt denies any chest pain. Pt states that he sometimes wakes up unable to breath at night. Pt does feel morning fatigue. calcium Pt has mild high calcium. HLP Pt has HLP Pt st arted lipitor. Pt denies any myalgia. Pt has been trying low fat and low carb diet anxiety` Pt has chronic a nxiety and depression. Pt has panic attacks at night. Pt did not start seroquel due to scared of side effects. Pt states that sometimes he wakes up at night gasping for air. Pt is not sure whether he has anxiety vs other issue.s panic attack1 Pt has anxiety a nd depression with occassioal panic attacks. Pt states that all panic attacks occurs at night while he tries to fall asleep. He states that he wakes up from panic attacks multiple times. . pt also has insomnia. Pt feels zoloft does help but his anxiety and panic attacks are still not well controlled at night calcium Pt has mildly prem rderline hypercalcemia. HLP Pt has rather se tyron HLP his TC and TG are high Pt has history of HLp Pt states that he has strong family history of HLP Pt eats 2-3 fast food per week and he also likes potato etc. cold symptoms1 Pt c/o sinus con gestion, chest congestion productive coughing with green phlegm, sore throat for one weeks. pt denies any ear pain. Pt denies any fever, chill. palpitation1 Pt has intermitt ent palpitation. Pt denies any chest pain .Pt supposest o see cardiology but his insurance refuses to provide medicar severice for him. He missed his appointment. He does not have drive licenese due to history of DUI and he canot get anything done. Pt feels sob intermittently when he feels anxious. Pt denies any acute sob anxiety1 Pt has chronic a nxiety and depression. Pt has poor motivation and severe anxiety. Pt states that zoloft helped his depression and anxiety. Pt still has lack of motivation and also he still does not want to go out of the house all the time. Pt failed buspar in the past Pt overall feels that zoloft is helping. PHysical Pt needs annual physical. pt has [...] esophagitis Quit smoking Related to Palpi tations Prescribed Diet Educ ation/Lifestyle Education Regarding Diet Related to Dietary Surveillance and Counseling Prescribed Activity and Exercise Education Related to Dietary Surveillance and Counseling Stop smoking. Related to Hyper lipidemia Follow a low sodium diet. Relate d to Hyperlipidemia Quit smoking Related to Acute upper respiratory infection, unspecified Increase activity. Related to En cntr for general adult medical exam w/o abnormal findings Assessments Type Assessment Date No Information
--- OUTSIDE RECORDS SUMMARY | 2025-03-10 07:16 | XMS_ITS | CONTINUITY OF CARE DOCUMENT ---
Author Name jozef haskins Address Unknown Organization [facility] Office Address [address] [place] [address] Phone [phone] Care Team Providers Care Center Mgr Name Role Phone Josue Gray MD Unavailable [phone] MICHAEL WAKEFIELD MD Unavailable [phone] MICHAEL WAKEFIELD MD Unavailable [phone] INSURANCE PROVIDERS Payer name Policy type / Coverage type [place] red democrat ID [employer] Medicaid [id number]
--- OUTSIDE RECORDS SUMMARY | 2025-03-10 07:16 | XMS_ITS | Clinical Summary ---
Author Organization [address] [address] Care Team Providers Care Renal Dialysis Technician Name Role Phone Angelica Ni Primary Care Provider [phone] Allergies No known active allergies Medications No known medications Active Problems No known active problems Encounters Date Type Department Care Team Description 01/27/2025 Results Follow-Up [facility] at [address] [address] Kia Arita NP 01/25/2025 3:30 PM HEEL SORTER - 01/25/2025 11:59 PM HEEL SORTER [place] [address] Urinary frequency Discharge Disposition: Discharge to home or self care 01/25/2025 3:30 PM HEEL SORTER Office Visit [facility] Care at [address] [address] Nayana Racson NP Urinary frequency (Primary Dx); Lower abdominal pain from Last 3 Months Surgical History Surgery Date Site/Laterality Comments HERNIA REPAIR Social History Tobacco Use Types Packs/Day Years Used Date Smoking Tobacco: Never Assessed Sex and Gender Information Value Date Recorded Sex Assigned at Not on file Legal Sex Male 2:32 PM HEEL SORTER Gender Identity Not on file Sexual Orientation Not on file Obstetrics History Last Filed Vital Signs Vital Sign Reading Time Taken Comments Blood Pressure 148/88 01/25/2025 3:09 PM HEEL SORTER Pulse 75 01/25/2025 3:09 PM HEEL SORTER Temperature 36.8 C (98.3 F) 01/25/2025 3:09 PM HEEL SORTER Respiratory Rate 16 01/25/2025 3:09 PM HEEL SORTER Oxygen Saturation 100% 01/25/2025 3:09 PM HEEL SORTER Inhaled Oxygen Concentration - - Weight 76.2 kg (168 lb) 01/25/2025 3:09 PM HEEL SORTER Height - - Body Mass Index - [...] Comments URINE CULTURE Routine 01/25/2025 3:30 PM HEEL SORTER Urinary frequency POCT URINALYSIS DIPSTICK Routine 01/25/2025 3:19 PM HEEL SORTER Urinary frequency from Last 3 Months Results * Urine culture Urine, clean voided (01/25/2025 3:30 PM HEEL SORTER) Report Final Report: No growth Comment:Testing performed by : [facility], [address] [place]., [address] Urine, clean voided 01/25/2025 3:30 PM HEEL SORTER 01/25/2025 10:23 PM HEEL SORTER Narrative [facility]O [facility]UER[facility] - 01/27/2025 7:55 AM HEEL SORTER Testing performed by [facility] Microbiology Laboratory ([phone]) us Nayana Rascon NP LAB MICROBIOLOGY - GENERAL ORD ERABLES Final Result [facility]ER[facility] [address] Department [place] [address] * POCT urinalysis dipstick (01/25/2025 3:19 PM HEEL SORTER) Color, Urine, POC Light Yellow Clarity, ur, POC Clear Clear Glucose, ur, POC Negative Negative MG/DL Bilirubin, ur, POC Negative Negative, Small, Moderate, Large Ketones, ur, POC Negative Negative Specific [place], POC 1.015 1.003 - 1.030 Blood, ur, POC Negative Negative pH, ur, POC 6.0 5.0 - 8.0 Protein, ur, POC Negative Negative Urobilinogen, urine, POC 0.2 0.2 - 1.0 mg/dL Nitrite, ur, POC Negative Negative Leukocytes, ur, POC Negative Negative Lot Number [id number] Urine 01/25/2025 3:19 PM HEEL SORTER Nayana Rascon NP POINT OF CARE TEST ORDERABLES Final Result from Last 3 Months Insurance [id number] Care Teams Renal Dialysis Technician Relationship Specialty Start Date End Date Angelica Ni PA [address] [place] [id number] PCP - General Physician Wash House Supervisor 01/25/25
== END 2025-03-10 07:00 | disposition home or self-care (01) ==
PROVIDERS: Emergency Medicine
DX: R51.9 Headache, unspecified (principal); I10 Essential (primary) hypertension
CPT/HCPCS: 36415; 71046; 80053; 81003; 85025; 93005; 99283

== ENCOUNTER 2025-04-11 13:50 | Emergency (ER) | payer OTHER, SELFPAY ==
--- NOTE | 2025-04-11 13:58 | ED_ITS ---
HPI - Nausea/Vomiting/Diarrhea General Chief complaint: Nausea/Vomiting/Diarrhea Stated complaint: Abdominal Pain/Diarrhea Time Seen by Provider: 04/11/25 14:10 Source: patient and RN notes reviewed Mode of arrival: ambulatory Limitations: no limitations History of Present Illness HPI Narrative: 44-year-old male presents with concern for one-week history of diarrhea. Reports 1 week ago he began having diarrhea and vomiting, he had vomiting for 1 day and that changed to persistent diarrhea with over 20 stools a day. Reports stools have lessened in amount but is still persistent. Reports abdominal cramping, gas. He reports general malaise without fever. He has been trying to drink fluids but it causes him to have diarrhea. He reports his appetite is poor. He has not recently traveled MD elicited complaint: diarrhea Related Data Home Medications ?Medication ?Instructions ?Recorded ?Confirmed ?Last Taken ?Type metoprolol tartrate 25 mg tablet 01/04/22 01/04/22 Unknown History fluoxetine 20 mg capsule mg 04/11/25 Unknown History losartan 100 mg tablet mg 04/11/25 Unknown History Allergies Allergy/AdvReac Type Severity Reaction Status Date / Time No Known Allergies Allergy Unknown Other Verified 04/11/25 13:53 Review of Systems Review of Systems: CONSTITUTIONAL: Denies malaise, chills, sweats, or fever. ENT: Denies rhinorrhea, congestion, sinus pain, otalgia or sore throat. CARDIOVASCULAR: Denies chest pain, palpitations, or edema. RESPIRATORY: Denies cough or dyspnea. GASTROINTESTINAL: Denies abdominal pain,. Reports abdominal cramping nausea, diarrhea, fatty stools. Denies bloody or mucous stools. GENITOURINARY: Denies dysuria or hematuria. MUSCULOSKELETAL: Denies myalgia. NEUROLOGIC: Denies headache. All systems reviewed & are unremarkable except as noted in HPI and below PMFSH Past Medical History Medical History (Updated 04/11/25 @ 14:16 by Sallie Reid NP) Patient denies significant medical history Social History Social History (Updated 01/04/22 @ 17:43 by Bob Mishra, DO) Smoking status: Never smoker Comments At time of signature, agree with nursing past medical, surgical, social and family history. There is no relevant family history pertinent to the presenting complaint Exam Narrative: GENERAL: Well-appearing, well-nourished, and in no acute distress. HEAD: Normocephalic, atraumatic. EYES: PERRLA, conjunctivae clear, and EOMI. ENT: Nares clear, turbinates pink, no rhinorrhea or epistaxis. Mucous membranes moist. Oropharynx without edema, erythema, or lesions. Tonsils not enlarged and without exudate. NECK: Supple. No lymphadenopathy CHEST: Speaks in full sentences. No respiratory distress. HEART: Regular rate and rhythm. ABDOMEN: Soft, flat, nondistended, mild left lower quadrant tenderness. No guarding, rebound tenderness, or rigidity. No pulsatile masses. Bowel sounds present in all four quadrants. No organomegaly. SKIN: Warm, dry, no rash. NEURO: Alert and oriented x3. PSYCH: Normal mood and affect Course Course Emergency Course: Patient is aware of diagnosis, understands and agrees to treatment plan. Anticipatory guidance given. Patient agrees to follow-up as directed and is aware of reasons to seek care at the emergency department. Portions of this record may have been created with voice recognition software Level of Care: Express Care Visit Vital Signs Vital signs: Reviewed. MDM - Nausea/Vomiting/Diarrhea MDM Narrative Medical decision making narrative: No evidence of pancreatitis, AAA, cholecystitis, choledocholithiasis, cholangitis, mesenteric ischemia, small bowel obstruction, diverticulitis, colitis, appendicitis, or pelvic etiology such as ovarian/testicular torsion, TOA, or ectopic . Patient has no history of peptic ulcer, H. pylori, chronic aspirin NSAID or corticosteroid use, chronic alcohol use, no history of inflammatory bowel disease, no history of active abdominal infection or malignancy. Patient has no history of hernia or intra-abdominal surgeries, patient denies absence of flatus, constipation, melena, hematemesis. Patient denies post-prandial pain. No pain-out of proportion. Exam findings show no acute concerns or changes; patient is non-toxic appearing and is in no distress. Patient is appropriate for outpatient treatment and follow-up. Critical Care Time Critical Care Time Critical Care Time: No Discharge Plan Discharge Clinical Impression: Diarrhea Patient Disposition: Home Condition: Stable Instructions: Antibiotic Form Additional Instructions: Please follow-up with your primary care doctor or gastroenterology if your symptoms persist Stay hydrated. Take small sips of fluid containing electrolytes frequently. You should go to the hospital if you experience return of persistent diarrhea that does not resolve and does not allow you to tolerate any food or fluids, increasing abdominal pain that persists despite medications, persistent diarrhea, dizziness, syncope (fainting), or for any other concerns. Please follow a bland diet. Having an established primary care provider is essential to your health. Please call [phone] for help finding a primary care provider in your area that accepts your insurance. Patient Language: [place] Citizen Prescriptions: New azithromycin [Zithromax Z-Ronak] 250 mg tablet See Rx Instructions .ROUTE .COMPLEX Qty: 6 0RF Rx Instructions: take 500 mg today (day 1), then 250 mg for 4 days (days 2-5) No Action losartan 100 mg tablet fluoxetine 20 mg capsule metoprolol tartrate 25 mg tablet Follow-up/Referrals: Last,JUSTIN Dominguez [Primary Care Provider] - Umberto Shepherd MD [Physician] - Time of Disposition: 14:17
[2025-04-11 14:08] VITALS: BP 147/95; PULSE 82; RESP 16; TEMP 36; O2SAT 100
== END 2025-04-11 14:19 | disposition home or self-care (01) ==
PROVIDERS: Emergency Provider Nurse Practitioner; PCP Physician Assistant
DX: R19.7 Diarrhea, unspecified (principal)
CPT/HCPCS: 99213; G0463

== ENCOUNTER 2025-08-04 15:19 | Emergency (ER) | payer OTHER, SELFPAY ==
[2025-08-04 15:32] VITALS: BP 149/90; PULSE 64; RESP 16; TEMP 36.3; O2SAT 100
--- NOTE | 2025-08-04 16:12 | ED_ITS ---
HPI - URI/Sore Throat General Chief Complaint: Upper Respiratory Infection Stated Complaint: SINUS CONGESITON/NAUSEA/DIZZY/VOMITING Time Seen by Provider: 08/04/25 16:00 Source: patient and RN notes reviewed Mode of arrival: ambulatory Limitations: no limitations History of Present Illness HPI Narrative: 45-year-old male presents [facility] complaining of upper respiratory symptoms for last 2 weeks. Patient initially said the symptoms were getting better over the last 4 days his symptoms got significantly worse complaining of sinus pressure, mucopurulent nasal drainage, nausea, vomiting, cough. Patient denies any fevers, body aches, chills, chest pain, shortness of breath, ear pain, sore throat, or any other symptoms. Patient taking Motrin to help with symptoms. Patient denies any significant past medical history. Related Data Home Medications ?Medication ?Instructions ?Recorded ?Confirmed ?Last Taken ?Type metoprolol tartrate 25 mg tablet 01/04/22 01/04/22 Un known History fluoxetine 20 mg capsule mg 04/11/25 Unknown History losartan 100 mg tablet mg 04/11/25 Unknown History Allergies Allergy/AdvReac Type Severity Reaction Status Date / Time No Known Allergies Allergy Unknown Other Verified 08/04/25 15:31 Review of Systems Review of Systems: CONSTITUTIONAL: Denies fever, chills, body aches, or sweats. EYES: Denies visual changes, redness, or discharge. ENT: Positive for rhinorrhea and sinus congestion. Negative for sore throat, or otalgia. CARDIOVASCULAR: Denies chest pain, palpitations, or edema. RESPIRATORY: Positive for cough. Negative for dyspnea or wheezing. GASTROINTESTINAL: Denies abdominal pain, nausea, vomiting, or diarrhea. GENITOURINARY: Denies dysuria or hematuria. SKIN: Denies rash or itching. MUSCULOSKELETAL: Denies back pain, joint pain, or myalgia. NEUROLOGIC: Denies headache, numbness, or weakness. PSYCHIATRIC: Denies anxiety or depression. All other systems reviewed are negative, except as documented in HPI. [facility] Past Medical History Medical History Patient denies significant medical history Social History Social History Smoking status: Never smoker Comments At the time of my signature, I reviewed and agree with the nursing past medical, surgical, social, and family history. There is no relevant family history pertinent to the patient complaint. Exam Narrative: GENERAL: This is a well-nourished, well-developed adult, in no apparent distress. They are non ill-appearing, nontoxic appearing. HEAD: normocephalic, atraumatic. EYES: Sclera clear/white. Vision is grossly intact. Conjunctiva normal nena aterally. Extraocular movements intact. EARS: External ears normal, auditory canals clear and without drainage, TMs without erythema or perforation. Hearing grossly intact. NOSE: External nose normal with no obvious nasal discharge, nasal turbinates erythematous with exudate, no rhinorrhea. Maxillary sinus tenderness to palpation. THROAT: Mucous membranes moist, posterior pharynx erythematous without exudate. Uvula is midline. Postnasal drip present. NECK: Neck supple, non-tender without lymphadenopathy, masses or thyromegaly. CARDIOVASCULAR: Regular rate and rhythm without murmurs, gallops, or rubs. RESPIRATORY: Clear to auscultation. Breath sounds equal bilaterally. No wheezes, rales, or rhonchi. GASTROINTESTINAL: Abdomen soft, flat, nontender. Bowel sounds active. Rebound tenderness. No guarding or rigidity. SKIN: warm, Dry, intact with no suspicious lesions or rash, good texture and turgor. NEURO: awake, alert, and oriented to person, place and time. There were no obvio us focal neurologic abnormalities. EXTREMITIES: No joint tenderness, effusion, or edema noted. BACK: Nontender without deformity. Course Course Emergency Course: Portions of this record may have been created with voice recognition software Level of Care: Express Care Visit Vital Signs Vital signs: Vital Signs Oxygen Delivery Room Air 08/04/25 15:31 Temperature 97.3 F L 08/04/25 15:32 Pulse Rate 64 08/04/25 15:32 Respiratory Rate 16 08/04/25 15:32 Blood Pressure 149/90 H 08/04/25 15:32 Pulse Oximetry 100 08/04/25 15:32 Oxygen Delivery Room Air 08/04/25 15:31 MDM - URI/Sore Throat MDM Narrative Medical decision making narrative: Patient likely has bacterial sinusitis if he has symptoms of waxing and waning becoming significantly worse. Will prescribe Augmentin. Patient also reporting some nausea vomiting, no peritoneal findings on exam. Patient able to keep fluids down symptoms vomiting earlier today. Will send a prescription of Zofran. Discussed physical exam findings. Advised supportive measures and signs/symptoms to go to the ER. Pt is appropriate for outpt treatment and f/u. Differential Diagnosis Differential diagnosis: Likely upper respiratory infection, sinusitis and viral infection Discharge Plan Discharge Clinical Impression: Sinusitis Patient Disposition: Home Condition: Stable Instructions: Antibiotic Form, Sinusitis (ED) Additional Instructions: Take the antibiotics as directed and complete the course even if you start to feel better. You may use a Neti pot saline rinse 3 times a day with lukewarm distilled water Take Zofran as needed for nausea or vomiting. You may take ibuprofen 600 mg to 800 mg every 6-8 hours. Do not exceed more than 800 mg of ibuprofen per dose. Do not exceed more than 3200 mg ibuprofen in a day. You may take up to 1000 mg Tylenol every 6-8 hours. Do not exceed 1000 mg per dose, do exceed more than 4000 mg of Tylenol in a day. Use a humidifier or vaporizer at night. Drink plenty of water. 8-10 glasses per day. Use flonase 2 times per day for 5 days then as needed Take mucinex 2 times per day and be sure to take with 8oz of water. Follow up with Primary provider in 3-5 days Please go to the ER if he develops any difficulty breathing, worsening symptoms, or any other concerns Patient Language: Tajik Prescriptions: New ondansetron 4 mg tablet,disintegrating 4 mg PO Q8H PRN (Reason: nausea and vomiting) Qty: 12 0RF amoxicillin-pot clavulanate 875-125 mg tablet 1 tablet PO Q12H 7 Days Qty: 14 0RF No Action losartan 100 mg tablet fluoxetine 20 mg capsule azithromycin [Zithromax Z-Ronak] 250 mg tablet See Rx Instructions .ROUTE .COMPLEX Qty: 6 0RF Rx Instructions: take 500 mg today (day 1), then 250 mg for 4 days (days 2-5) metoprolol tartrate 25 mg tablet Follow-up/Referrals: Last,JUSTIN Dominguez [Primary Care Provider, Unknown] Time of Disposition: 16:15
== END 2025-08-04 16:39 | disposition home or self-care (01) ==
PROVIDERS: PCP Physician Assistant
DX: J32.9 Chronic sinusitis, unspecified (principal)
CPT/HCPCS: 99213; G0463